=== PATIENT | male | born 1990 | race Caucasian/White ===

== ENCOUNTER 2016-12-15 10:55 | Emergency (ER) | payer MEDICAID ==
[2016-12-15] MEDS ORDERED: ONDANSETRON 2MG/ML, 2ML ONE (12:50)
[2016-12-15] MEDS ORDERED: HYDROmorphone 1 MG/ML, 1ML ONE (12:50)
[2016-12-16] MEDS ORDERED: NITROGLYCERIN SINGLE TAB 0.4 MG SL ONE ×2 (18:52→19:01)
[2016-12-18 10:39] LABS: ASPARTATE AMINO TRANSFERASE 17 U/L (15-37); BLOOD UREA NITROGEN 15 mg/dL (7-18)
== END 2016-12-15 14:42 ==
LOC: ED 10:55
DX: R10.84 Generalized abdominal pain (principal)
CPT/HCPCS: 36415; 74176; 80053; 81003; 83690; 85025

== ENCOUNTER 2017-02-08 11:32 | Emergency (ER) | payer BC, MEDICAID ==
[~2017-02-08] VITALS: Ht 170.2 cm; Wt 56.5 kg
[2017-02-08] MEDS ORDERED: SODIUM CHLORIDE FLUSH 10ML SYR IVF ONE (12:30)
[2017-02-08] MEDS ORDERED: SODIUM CHLORIDE 0.9% 1,000ML IVBOLUS ONE (12:30)
[2017-02-08] MEDS ORDERED: FAMOTIDINE 20 MG/2 ML IVP ONE (12:30)
[2017-02-08] MEDS ORDERED: ONDANSETRON 2MG/ML, 2ML IVPush ONE (12:30)
[2017-02-08] MEDS ORDERED: ONDANSETRON 2MG/ML, 2ML ONE (12:42)
[2017-02-08] MEDS ORDERED: FAMOTIDINE 20 MG/2 ML ONE (12:42)
[2017-02-08 12:43] LABS: BLOOD UREA NITROGEN 17 mg/dL (7-18)
[2017-02-08 12:46] LABS: ASPARTATE AMINO TRANSFERASE 18 U/L (15-37)
[2017-02-08 14:39] VITALS: BP 116/60
== END 2017-02-08 14:41 | disposition home or self-care (01) ==
LOC: ED 13:29
DX: R11.2 Nausea with vomiting, unspecified (principal); R10.84 Generalized abdominal pain; R19.7 Diarrhea, unspecified
CPT/HCPCS: 36415; 80053; 81003; 83690; 85025; 96361; 96374; 96375; 99285; J2405; J7030; S0028

== ENCOUNTER 2017-02-08 20:13 | Emergency (ER) | payer BC, MEDICAID ==
[~2017-02-08] VITALS: Ht 170.2 cm; Wt 57.2 kg
[2017-02-08] MEDS ORDERED: DICYCLOMINE 10 MG/ML, 2ML IM ONE (21:00)
[2017-02-08 21:33] VITALS: BP 111/61
== END 2017-02-08 22:07 | disposition home or self-care (01) ==
LOC: ED 21:13
DX: K52.9 Noninfective gastroenteritis and colitis, unspecified (principal); F17.200 Nicotine dependence, unspecified, uncomplicated; F12.10 Cannabis abuse, uncomplicated
CPT/HCPCS: 96372; 99283; J0500

== ENCOUNTER 2018-12-12 14:09 | Emergency (ER) | payer BC, MEDICAID, OTHER ==
[~2018-12-12] VITALS: Ht 172.7 cm; Wt 59.5 kg
[2018-12-12 14:18] VITALS: BP 133/86
[2018-12-12] MEDS ORDERED: KETOROLAC 30 MG/1 ML ONE (14:42)
[2018-12-12] MEDS ORDERED: KETOROLAC 30 MG/1 ML IM ONE (15:00)
== END 2018-12-12 15:26 | disposition home or self-care (01) ==
LOC: ED 15:00
DX: M54.41 Lumbago with sciatica, right side (principal); F17.210 Nicotine dependence, cigarettes, uncomplicated
CPT/HCPCS: 72110; 96372; 99283; J1885

== ENCOUNTER 2019-12-18 22:08 | Emergency (ER) | payer OTHER ==
[~2019-12-18] VITALS: Ht 172.7 cm; Wt 56.7 kg
--- NOTE | 2019-12-18 22:31 | NUR ---
1ST CONTACT C PT. AMBULATORY FROM TRIAGE. STATES FEELING VERY SAD. RECENTLY SEPERATED FROM . WAS TOLD HE COULDNT TAKE HIS DAUGHTER TO [place] TO VISIT FAMILY. PT THEN CALL MOTHER & SISTER ASKING FOR HELP. PT DENIES ANY PLAN, STATES HIS BROTHER COMMITTED SUICIDE THIS YEAR AND HE COULDNT BEAR TO PUT HIS FAMILY THROUGH THAT.
--- NOTE | 2019-12-18 22:42 | NUR ---
PHLEB AT BS.
[2019-12-18 22:45] LABS: BASOPHILS # (AUTO) 0.03 x10^3/uL (0-0.1); BASOPHILS % (AUTO) 0 % (0-1); EOSINOPHILS # (AUTO) 0.22 x10^3/uL (0-0.4); EOSINOPHILS % (AUTO) 2 % (1-7); LYMPHOCYTES # (AUTO) 3.26 x10^3/uL (1-3.4); LYMPHOCYTES % (AUTO) 28 % (22-44); MD NO; MEAN CORPUSCULAR HEMOGLOBIN 30.2 pg (27.5-34.5); MEAN PLATELET VOLUME 9.2 fL (7.4-10.4); MONOCYTES # (AUTO) 0.62 x10^3/uL (0.2-0.8); MONOCYTES % (AUTO) 5 % (2-9); NEUTROPHILS # (AUTO) 7.38 x10^3/uL (1.8-6.8); NEUTROPHILS % (AUTO) 64 % (42-75); PLATELET COUNT 272 x10^3/uL (130-400); RED BLOOD COUNT 5.67 x10^6/uL (4.38-5.82); RED CELL DISTRIBUTION WIDTH 13.5 % (9.4-14.8)
--- NOTE | 2019-12-18 22:53 | NUR ---
1 BAG OF BELONGINGS PLACED IN LOCKER/BIN#2.
[2019-12-18 22:56] LABS: ALBUMIN 4.7 g/dL (3.4-5.0); ANION GAP 7 mmol/L (5-15); CALCIUM 9.4 mg/dL (8.5-10.1); CHLORIDE 108 mmol/L (98-107); CREATININE 1.11 mg/dL (0.7-1.3)
[2019-12-18 22:57] LABS: SALICYLATE LEVEL < 1.7 mg/dL (2.8-20.0)
--- NOTE | 2019-12-18 23:48 | NUR ---
tele psych monitor in room. pt sleeping, rr even non labored. nad.
--- NOTE | 2019-12-19 01:30 | NUR ---
pt sleeping in bed. rr even non labored. will ctm. sitter outside of room
--- NOTE | 2019-12-19 02:30 | NUR ---
pt sleeping in bed. rr even non labored. will ctm. sitter outside of room
--- NOTE | 2019-12-19 03:40 | NUR ---
pt sleeping in bed. rr even non labored. vss. will ctm. sitter outside of room.
--- NOTE | 2019-12-19 04:56 | NUR ---
PT AMBULATORY TO RESTROOM C STEADY GAIT. SAMPLE OBTAINED & SENT. SITTER REMAINS OUTSIDE OF ROOM. WILL CTM.
--- NOTE | 2019-12-19 05:11 | NUR ---
tp: faxed packet to psych facilities.
--- NOTE | 2019-12-19 05:49 | NUR ---
HARLEEN WESTON RN AT [facility]. DOES NOT HAVE ACCEPTING AT THIS TIME.
--- NOTE | 2019-12-19 05:53 | NUR ---
ACCEPTING: DR. PICHARDO. TO BE TRANSPORTED AT 08.
[2019-12-19 05:55] LABS: AMPHETAMINE SCREEN, URINE Negative (Negative); BARBITURATE SCREEN, URINE Negative (Negative); BENZODIAZEPINE SCREEN, URINE Negative (Negative); CANNABINOID SCREEN, URINE Positive (Negative); COCAINE SCREEN, URINE Negative (Negative); METHADONE SCREEN, URINE Negative (Negative); OPIATE SCREEN, URINE Negative (Negative)
--- NOTE | 2019-12-19 06:15 | NUR ---
TRANSPORT ARRANGED WITH [facility]. ETA [phone] TO [facility].
--- NOTE | 2019-12-19 06:59 | NUR ---
PATIENT REPORT TAKEN FROM [facility] AND PATIENT IN BED, AWAITING TRANSPORTATION TO [place] THIS MORNING.
[2019-12-19 07:53] VITALS: BP 118/78
--- NOTE | 2019-12-19 07:53 | NUR ---
PATIENT REPORT GIVEN TO [facility]. BELONGINGS BAG CONFIRMED AND GIVEN TO PATIENT, AND HE WAS TRANSPORTED TO [place].
== END 2019-12-19 07:56 ==
LOC: ED 22:52
DX: R45.851 Suicidal ideations (principal); F32.9 Major depressive disorder, single episode, unspecified; F17.210 Nicotine dependence, cigarettes, uncomplicated
CPT/HCPCS: 36415; 80048; 80307; 82040; 85025; 99285; 99406